=== PATIENT | female | born 1975 | race Two or more races ===

== ENCOUNTER 2022-11-03 19:33 | Emergency (ER) | payer OTHER ==
[~2022-11-03] VITALS: Ht 170.2 cm; Wt 79.5 kg
[2022-11-03 20:29] VITALS: BP 106/70; PULSE 70; RESP 18; TEMP 97.7
== END 2022-11-03 22:26 | disposition home or self-care (01) ==
LOC: EMS 19:35
DX: S62.644A Nondisplaced fracture of proximal phalanx of right ring finger, initial encounter for closed fracture (principal); W23.0XXA Caught, crushed, jammed, or pinched between moving objects, initial encounter; Y93.89 Activity, other specified; Y92.89 Other specified places as the place of occurrence of the external cause; Y99.8 Other external cause status
CPT/HCPCS: 99283